=== PATIENT | female | born 1970 | race Hispanic/Latino ===

== ENCOUNTER 2017-11-15 11:26 | Outpatient (CLI) | payer OTHER ==
--- NOTE | 2017-11-19 14:21 | MMO ---
BILATERAL DIGITAL SCREENING MAMMOGRAMS: Date: 11/15/17 A HISTORY: 47-year-old female presents for digital screening mammogram. COMPARISON: 11/10/16, 08/19/15. FINDINGS: This patient's mammogram was interpreted with the assistance of computer-aided detection. The breasts are heterogeneously dense, which can obscure small masses. There are a few typically benign calcification. No direct or indirect evidence of malignancy. IMPRESSION: BIRADS 2: Benign Finding(s) Continue routine screening. POS: [facility]
== END 2017-11-15 11:27 | disposition home or self-care (01) ==
LOC: SCSMAMMO 11:26
PROVIDERS: ATTEND Nurse Practitioner Family
DX: Z12.31 Encounter for screening mammogram for malignant neoplasm of breast (principal)
CPT/HCPCS: 77067